=== PATIENT | female | born 1990 | race Caucasian/White ===

== ENCOUNTER → 2016-11-04 | Outpatient (CLI) | payer MEDICAID ==
[~2016-11-04] MED LIST: AMOXIL500 M1 PO; BACTROBAN2% TP; BIAXIN 500MG T500 MG PO; BIRTH CONTROL PO; BISOPROLOL 5MG T5 MG PO; CIPRO 500MG TA500 MG PO; DARVOCET-N 1001 EACH PO; FLAGYL 500MG.500 MG PO; FLEXERIL10 MG PO; HYDROCODONE1 TABLET PO; IBU800 MG PO; KEFLEX 500MG.500 MG PO; LEVOTHYROXIN0.025 M1 PO; LEVOTHYROXIN0.125 MG PO; LORTAB 5/500 501 TAB PO; MEDROL 4MG. DOSE4 MG PO; METFORMIN 500M500 M1 PO; MINOCYCLINE 10100 MG PO; NAPROSYN 500MG500 MG PO; NOMEDS XX; PEPCID 20MG TAB20 MG PO; PHENERGAN 25MG.25 M1 PO; PREDNISONE 20MG20 MG PO; TESSALON PERLE100 M1 PO; TESSALON PERLE100 MG PO; TIROSINT25 MCG PO; TYLENOL W/CODEI1 TA2 PO; VIBRAMYCIN 100100 MG PO; VOLTAREN75 MG PO; ZITHROMAX Z PA250 MG PO
[2016-11-04 14:30] LABS: HEMOGLOBIN 14.1 g/dL (12.2-16.2); LYMPH % 35.8 % (10-50.0)
--- NOTE | 2016-11-04 14:35 | RADIOLOGY REPORT PS360 ---
CHEST(2 VIEWS-NOT PORTABLE) HISTORY: FATIGUE,DYSPNEA ORDERING PHYSICIAN: GILSON SANDHU PATIENT AGE: 26 years COMPARISON: 09/17/2013 FINDINGS: The cardiomediastinal silhouette and pulmonary vascularity are within normal limits. The lungs are clear without infiltrates, suspicious nodules, or pleural effusions. No acute bony abnormalities. IMPRESSION: Negative chest, no acute finding
[2016-11-04 14:41] LABS: BUN 18 mg/dL (7-18)
[2016-11-04 14:47] LABS: GFR (ESTIMATED) 86 ML/MIN (59-)
== END ==
LOC: LAB 13:42
DX: R53.83 Other fatigue (principal); R06.00 Dyspnea, unspecified

== ENCOUNTER → 2017-04-20 | Outpatient (CLI) | payer MEDICAID ==
[~2017-04-20] MED LIST changes: +JUNEL FE 1/20 21 TAB PO
[2017-04-20 17:28] LABS: LYMPH # 1.7 K/mm3 (0.7-4.5); LYMPH % 32.3 % (10-50.0)
[2017-04-20 17:35] LABS: HEMOGLOBIN 12.5 g/dL (12.2-16.2)
[2017-04-20 18:08] LABS: BUN 12 mg/dL (7-18)
[2017-04-20 19:38] LABS: GFR (ESTIMATED) 100 ML/MIN (59-)
[2017-04-22 08:39] LABS: Vitamin D, 25-Hydroxy 39.5 ng/mL (30.0-100.0)
[2017-04-22 09:41] LABS: Folate (Folic Acid) >20.0 ng/mL (>3.0); Vitamin B12 374 pg/mL (211-946)
== END ==
LOC: LAB 17:05
PROVIDERS: Physician Assistant
DX: E03.9 Hypothyroidism, unspecified (principal)

== ENCOUNTER → 2017-04-27 | Outpatient (CLI) | payer MEDICAID ==
[2017-04-28 10:39] LABS: HBsAg Screen Negative (Negative); Hep A Ab, IgM Negative (Negative); Hep B Core Ab, IgM Negative (Negative); Hep C Virus Ab <0.1 (0.0-0.9)
== END ==
LOC: LAB 10:58
PROVIDERS: Physician Assistant
DX: R79.89 Other specified abnormal findings of blood chemistry (principal)

== ENCOUNTER 2017-06-02 17:58 | Emergency (ER) | payer MEDICAID ==
[~2017-06-02] VITALS: Ht 170.2 cm; Wt 117.9 kg
--- NOTE | 2017-06-02 18:58 | Urgent Treatment Center Report ---
History of Present Issue Date/Time Seen by Provider 06/02/17 1472 Visit Reason Pt arrived:Walked Presenting Problem:PT STATES SHES HAVING RIGHT SHOULDER PAIN AND SHE THINKS SHE PULLED A MUSCLE Location if Accident: Onset of symptoms date/time:/ or onset unknown for:MEDICAL HX UNKNOWN Have you (or family members/close friends) recently traveled outside the [place]? N If Yes, where/when: Have you had exposure to infectious disease within the past month? TB? Other? Specify: Patient states that she was unloading a truck a few days ago and thinks she may have pulled something in her shoulder area or either having spasms States that pain has continued to get worse and feels like her muscle in her shoulder area is really tight State that she went to get a box down out of the closet and pain appeared to get worse and felt like she was pulling something in her back and shoulder area so she came in to get checked out ALLERGIES Coded Allergies: Sulfa (Sulfonamide Antibiotics) (Intermediate, RASH/SWELLING 04/09/16) Penicillins (04/09/16) Home Medications Reported Medications Metformin HCl (Metformin) 1,000 MG PO BID #120 NORETHINDRONE-E.ESTRADIOL-IRON (Junel Fe 1 MG-20 Mcg Tablet) 1 TAB PO DAILY #28 History Medical History General CAD? No Angina: No IA: No Hypertension? Yes Hyperlipidemia? No CHF? No DVT? No PE? No COPD? No Asthma? No Anemia? No GERD? No Gastric ulcers? No GI Bleed? No Hernia? No Thyroid Problems? No Hypothyroidism? No CVA? No Seizures? No Diabetes? No Renal Insuffiency? No UTI? No Stones? No BPH? No GB Disease: No Nephritic Syndrome? No Asplenia? No Hepatitis? No Sickle Cell Disease? No Arthritis? No Migraines? No Cataracts? No Glaucoma? No MRSA? No HIV? No TB? No Anxiety? No Depression? No Cancer? No More? No Immunization HX DT/Tetanus 1-4 Years Ago Flu [id number] Pneumonia Received In Past Surgical Hx Previous Surgery?Y EYE SURGERY X 2 HEART CATH GASTRIC SLEEVE Family History Family HX Diabetes Yes CAD Yes Hypertension Yes Hyperlipidemia Yes Cancer Yes TB No Social History Smoking Hx Smoker: Never Smoker Tobacco: No Packs/day N/A Alcohol Alcohol: No Review of Systems All Other Systems Reviewed and Negative Physical Exam Vital Signs Vital Signs Date Time Temp Pulse Resp B/P Pulse O2 O2 Flow FiO2 Ox Delivery Rate 06/02 1915 18 06/02 1810 97.9 98 20 138/65 97 General Appearance normal appearance, WD/WN, no apparent distress Respiratory Status Yes: trachea midline, chest symmetrical, non tender chest. No: respiratory distress. Lung Sounds bilateral: normal breath sounds, lungs clear. Cardiovascular normal exam, regular rate/rhythm, no peripheral edema Back muscle spasm, Muscle spasm felt right shoulder area tight and patient state that pain when palpated, no discoloration noted in shoulder no deformities Extremities Pain in right shoulder with movement describes as tightness and feels like a muscle spasm Neurologic alert, normal exam, oriented x 3 Medical Decision Making LABS/Meds/Orders Pt receiving controlled substance in ED? No Results/Orders Laboratory Tests 06/02/171858: Urine Test NEGATIVE Current Medication Orders Sig/Derrick Start time Last Medication Dose Route Stop Time Status Admin Orphenadrine Citrate 0 .STK-MED ONE 06/02 1913 DC .ROUTE Ketorolac 0 .STK-MED ONE 06/02 1912 DC Tromethamine .ROUTE Ketorolac 60 MG ONCE ONE 06/02 1900 DC 06/02 Tromethamine IM 06/02 Orphenadrine Citrate 60 MG ONCE ONE 06/02 190 DC 06/02 IM 06/02 Orders Procedure Date/time Status UTC URINE 06/02 1859 Complete UTC STABILIZE JOINT/AREA 06/02 1852 Active [id number] VIEWS 06/02 1812 Active XRAY/CT/US XRAY/CT/US XRAY shoulder XR interpretation by reviewed by me Xray Results no fracture seen Departure Departure Time of Disposition 1924 Disposition DC Home or Self Care(routine) Clinical Impression Primary Impression: Muscle spasm Condition STABLE Referrals YARED GUPTA (Family): 3 Days-Call Office Patient Instructions DI for Muscle Spasm Additional Instructions Follow up with family doctor REturn if needed Take medication as prescribed *Ibuprofen arley 6 hours with meal as needed for pain/inflammation *Remember you had a Toradol shot in the clinic today, which is similar to Motrin *Not additional anti-inflammatory like motrin, aleve, advil with the above amount of ibuprofen. You can still take Tylenol every 4 hours as needed if you need something else for pain *Ice 20 minutes every 2 hours for the first 48 hours after the initial injury followed by moist heat every 20 minutes 3-4 times a day to affected area *Muscle relaxer every 8 hours as needed for muscle spasms but remember, it WILL cause drowsiness You cannot take it and drive, operate machinery or care for small children. *Keep this area active, no movement leads to more stiffness, However take it easy and avoid heavy lifting pushing or pulling Discharge Counseling Counseled pt/family regarding diagnosis, test results, medications/RX, home care, follow up needs Prescriptions Current Visit Scripts Ibuprofen (Ibuprofen 800MG) 800 MG PO QIDP PRN pain #30 TAB Cyclobenzaprine Hcl (Flexeril) 10 MG PO TID #15 TAB at 1927
[2017-06-02] MEDS ORDERED: IBUPROFEN800 MG PO (19:26)
[2017-06-02] MEDS ORDERED: FLEXERIL10 MG PO (19:26)
[2017-06-02 19:27] VITALS: BP 138/65
--- NOTE | 2017-06-02 20:50 | RADIOLOGY REPORT PS360 ---
[id number] VIEWS HISTORY: Pain with limited range of motion PAIN ORDERING PHYSICIAN: KAY WANG APRN PATIENT AGE: 26 years COMPARISON: None FINDINGS: No fracture or dislocation. No lytic or blastic change. There is normal mineralization. The joint spaces are well-preserved. No significant degenerative/arthritic changes. No erosive changes evident. No subacromial stenosis IMPRESSION: Negative right shoulder
== END 2017-06-02 19:31 | disposition home or self-care (01) ==
LOC: UTC 17:58
DX: M62.838 Other muscle spasm (principal); Z88.0 Allergy status to penicillin; Z88.2 Allergy status to sulfonamides; I10 Essential (primary) hypertension